=== PATIENT | female | born 1955 | race Caucasian/White ===

== ENCOUNTER → 2021-10-20 08:03 | Outpatient (CLI) | payer MEDICARE, OTHER, SELFPAY ==
[2021-10-20 19:01] LABS: Alanine Aminotransferase 19 IU/L (<35); Albumin 4.7 g/dL (3.5-5.0); Albumin Globulin Ratio 1.7 (1.0-2.8); Alkaline Phosphatase 64 U/L (38-126); Aspartate Aminotransferase 22 IU/L (14-36); BUN Creatinine Ratio 17.4 (6-22); Bilirubin Total 0.4 mg/dL (0.2-1.3); Blood Urea Nitrogen 12 mg/dL (7-17); Calcium 10.2 mg/dL (8.4-10.2); Carbon Dioxide 27 mmol/L (22-32); Chloride 104 mmol/L (98-107); Estimated Glomerular Filt Rate > 60.0 mL/min (>60); Globulin 2.8 g/dL (1.7-4.1); Glucose 96 mg/dL (80-110); HEMOLYSIS < 15 (0-50); Sodium 137 mmol/L (137-145); Total Protein 7.5 g/dL (6.3-8.2)
[2021-10-20 19:02] LABS: Potassium 4.4 mmol/L (3.4-5.1)
[2021-10-20 19:04] LABS: Add Manual Diff / Slide Review NO; Basophils Absolute Auto 100 /uL (0-100); Basophils Percent Auto 0.6 % (0-2); Eosinophils Absolute Auto 100 /uL (0-450); Eosinophils Percent Auto 0.7 % (2-4); Hematocrit 41.2 % (36-46); Hemoglobin 13.7 g/dL (12.0-16.0); Lymphocytes Absolute Auto 2300 /uL (1100-4500); Lymphocytes Percent Auto 24.2 % (25-40); Mean Corpuscular HGB Conc 33.4 % (30-36); Mean Corpuscular Hemoglobin 29.5 PG (26-34); Mean Corpuscular Volume 88.5 fL (80-100); Monocytes Absolute Auto 600 /uL (0-900); Monocytes Percent Auto 6.2 % (3-14); Neutrophils Absolute Auto 6600 /uL (1500-7000); Neutrophils Percent Auto 68.3 % (50-75); Platelet Count 464 X10^3/uL (150-400); Red Blood Cell Count 4.65 X10^6/uL (4.0-5.2); Red Cell Distribution Width 15.3 % (11.6-14.8); White Blood Cell Count 9.6 X10^3/uL (4.5-11.0)
[2021-10-20 19:20] LABS: Free T4, Direct Thyroxine 1.41 ng/dL (0.78-2.19)
[2021-10-20 19:34] LABS: Thyroid Stimulating Hormone 0.307 uIU/mL (0.47-4.68)
== END ==
PROVIDERS: PCP Family Medicine; Visit Provider Family Medicine
DX: M54.9 Dorsalgia, unspecified (principal); F32.A Depression, unspecified; E03.9 Hypothyroidism, unspecified; G89.29 Other chronic pain; R53.82 Chronic fatigue, unspecified
CPT/HCPCS: 80053; 84439; 84443; 85025

== ENCOUNTER 2022-01-20 09:24 | Emergency (ER) | payer OTHER, MEDICARE, SELFPAY ==
[2022-01-20 09:29] VITALS: BP 126/65; PULSE 98; RESP 14; TEMP 36; O2SAT 97; BMI 20.5
--- NOTE | 2022-01-20 09:33 | DI.RAD.S_ITS ---
PROCEDURE: XR KNEE RT 1TO2V INDICATIONS: knee injury TECHNIQUE: 2 views of the knee were acquired. COMPARISON: None. FINDINGS: Bones: Mildly comminuted fracture of the patella with distraction of the fracture fragments. Overlying soft tissue edema. No suspicious bony lesions. Soft tissues: No substantial joint effusion. No suspicious soft tissue calcifications. IMPRESSION: Mildly comminuted right patellar fracture with distraction of the proximal and distal fracture fragments. Dictated by: Lex Isaacs M.D. on 01/20/2022 at 10:40 Approved by: Lex Isaacs M.D. on 01/20/2022 at 10:41
[2022-01-20] MEDS: HYDROCODONE/ACET 5/325 TABLET 1 TAB PO ×2 (10:25→11:14)
[2022-01-20 10:30] VITALS: BP 133/84; PULSE 89; RESP 18; O2SAT 98
--- NOTE | 2022-01-20 10:42 | ED.LOWEXIN ---
HPI - Extremity Injury (Lower) General Chief Complaint: Extremity Injury, Lower Stated Complaint: Right knee injury Time Seen by Provider: 01/20/22 10:14 Source: patient Mode of arrival: Wheelchair History of Present Illness HPI Narrative: Patient is a 66-year-old female with noncontributory past medical history who presents with right knee pain. She was at work during sausage when she fell directly onto her knee. She is unable to bend it. She has severe pain is currently splinted [place] No numbness tingling or weakness. Related Data Home Medications Medication Instructions Recorded Confirmed alprazolam 0.25 mg tablet 0.25 mg PO BEDTIME 01/13/21 09/17/21 Previous Rx's Medication Instructions Recorded sertraline 100 mg tablet 100 mg PO DAILY #200 tabs 11/09/21 trazodone 50 mg tablet 50 mg PO BEDTIME #200 tabs 11/09/21 levothyroxine 50 mcg tablet 50 mcg PO DAILY #90 tabs 11/15/21 levothyroxine 25 mcg capsule 12.5 mcg PO DAILY #100 caps 11/16/21 hydrocodone 5 mg-acetaminophen 325 1 tab PO Q6H PRN pain #14 tabs 01/20/22 mg tablet Allergies Allergy/AdvReac Type Severity Reaction Status Date / Time cephalexin [From Keflex] Allergy Unknown Verified 01/20/22 09:29 seasonal Allergy Unknown Uncoded 01/13/21 20:24 yellow jackets Allergy Unknown Uncoded 01/13/21 20:24 Review of Systems Review of Systems Narrative: GENERAL: Denies chills,fever HEENT: Denies throat pain RESPIRATORY: Denies dyspnea, cough, wheezing CARDIOVASCULAR: Denies chest pain, palpitations GASTROINTESTINAL: Denies nausea, vomiting MUSCULOSKELETAL: See HPI SKIN: No rash, no laceration, no pruritus NEUROLOGIC: Denies weakness, dizziness, headache, numbness 8 point review of systems is negative except for those stated above and HPI Patient History Medical History Benign paroxysmal vertigo, bilateral Cataracts, bilateral (~2020) Chicken pox Chronic back pain (~1973) Chronic cough Chronic fatigue Chronic fatigue, unspecified Contusion of left front wall of thorax, initial encounter Depression Dizziness and giddiness Fibroids Fibromyalgia Headache Hemorrhoid Hypothyroidism, unspecified Insomnia Irregular menstrual cycle Mumps PTSD (post-traumatic stress disorder) Repeated falls Scoliosis Shoulder pain (~1973) Unspecified injury of face, initial encounter Unspecified injury of head, initial encounter Surgical History Anesthesia History of appendectomy History of hernia repair History of hysterectomy Family History Father Stroke Mother Ovarian cancer Hyperlipidemia Hypertension Brother Mental health problem Family estrangement Brother Stroke Sister Hyperlipidemia Hypertension Grandmother Cancer Grandfather History of heart disease Social History Smoking Status: Never smoker Smoking Status: Never smoker alcohol intake frequency: holidays/special occasions only Substance Use Type: does not use Exam Initial Vital Signs Initial Vital Signs: Vital Signs Temperature 96.8 F L 01/20/22 09:29 Pulse Rate 98 H 01/20/22 09:29 Respiratory Rate 14 01/20/22 09:29 Blood Pressure 126/65 01/20/22 09:29 Pulse Oximetry 97 01/20/22 09:29 Oxygen Delivery Method 01/20/22 09:29 GENERAL: Well-appearing, well-nourished and in no acute distress. CARDIOVASCULAR: peripheral pulses in tact, cap refill <2 sec RESPIRATORY: No respiratory distress, speaks in full sentences without difficulty EXTREMITIES: Normal range of motion, no clubbing or edema. Neurovascularly intact Right lower extremity swelling over patella, distal pedal pulse intact unable to flex or extend NEUROLOGICAL: Cranial nerves II through XII grossly intact. Normal gait and speech. SKIN: Warm, dry, no petechiae, no rashes or lesions. Course Orders Ordered: Discontinued Medications Hydrocodone Bitart/Acetaminophen (Hydrocodone/Acet 5/325 Tablet) 1 tab PO NOW ONE Stop: 01/20/22 10:20 Last Admin: 01/20/22 10:25 Dose: 1 tab Documented By: ANNALISE Hydrocodone Bitart/Acetaminophen (Hydrocodone/Acet 5/325 Tablet) 1 tab PO NOW ONE Stop: 01/20/22 11:10 Last Admin: 01/20/22 11:14 Dose: 1 tab Documented By: ANNALISE(2) Vital Signs Vital signs: Vital Signs - 8 hr 01/20/22 09:29 01/20/22 10:30 Temperature 96.8 F L Pulse Rate 98 H 89 Respiratory Rate 14 18 Blood Pressure 126/65 133/84 Pulse Oximetry 97 98 Oxygen Delivery Method Room Air MDM - Extremity Injury (Lower) Imaging Data Extremity x-ray #1: Radiologist's Impression: Signed Patient: Saida Euceda MR#: [id number] : 1955 Acct:[id number] Age/Sex: 66 / F Date of Service: 01/20/22 Loc: ED Accession Number: [id number] ?? Procedure: XR knee RT 1to2V Ordering Provider: Sarah Kulkarni D.O. PROCEDURE:? XR KNEE RT 1TO2V ? INDICATIONS:? knee injury ? TECHNIQUE:? 2 views of the knee were acquired.? ? COMPARISON:? None. ? FINDINGS:? ? Bones:? Mildly comminuted fracture of the patella with distraction of the fracture fragments.? Overlying soft tissue edema.? No suspicious bony lesions.? ? Soft tissues:? No substantial joint effusion.? No suspicious soft tissue calcifications.? IMPRESSION:? Mildly comminuted right patellar fracture with distraction of the proximal and distal fracture fragments. ? ? Dictated by: Lex Isaacs M.D. on 01/20/2022 at 10:40 ? ? Approved by: Lex Isaacs M.D. on 01/20/2022 at 10:41 ? [facility] Narrative Medical decision making narrative: Dr. Gillespie consulted. Request patient call office today so surgery can be scheduled. Patient is given pain medications in the ED. Overall doing much better. Discharge Plan Departure Patient Disposition: Home Clinical Impression: Patellar fracture Instructions: Patella Fracture Activity Restrictions/Additional Instructions: *You have been diagnosed with right patellar fracture *What to do: Keep knee immobilizer on elevate and ice *Continue to take medications as directed 1 tablet every 4 hours or 2 tablets every 6 hours if needed for pain *Follow up with your primary care provider in 2-3 days or call [phone] Please stop off at orthopedic office today to provide insurance information so surgery can be expedited and scheduled *Return to ER if you should have increasing pain swelling fever or any new, worsening or concerning symptoms CONTROLLED SUBSTANCE DISCHARGE (Narcotoic/benzodiazepine/Flexeril/Phenergan) 1. You have been prescribed narcotic medications, it does have acetaminophen/Tylenol/paracetamol in it, DO NOT TAKE MORE THAN 4,00mg in 24 hours of Tylenol. TRAMADOL DOES NOT CONTAIN TYLENOL 2. Please understand that we cannot provide further refills of narcotics, benzodiazepines or controlled substances through the ED and her pain management will need to be through your provider. 3. While on these medications you cannot drive or operate heavy machinery. 4. You cannot sign legal documents or perform any duties such as this. 5. As long as you're taking opiate pain medications he should also be taking a stool softener such as Colace, Dulcolax, MiraLAX or prune juice, to help avoid constipation. Prescriptions: New hydrocodone-acetaminophen 5-325 mg tablet 1 tab PO Q6H PRN (Reason: pain) Qty: 14 0RF No Action levothyroxine 50 mcg tablet 50 mcg PO DAILY Qty: 90 1RF levothyroxine 25 mcg capsule 12.5 mcg PO DAILY Qty: 100 1RF alprazolam 0.25 mg tablet 0.25 mg PO BEDTIME sertraline 100 mg tablet 100 mg PO DAILY Qty: 200 1RF trazodone 50 mg tablet 50 mg PO BEDTIME Qty: 200 1RF Referrals: [facility] [Provider Group] Agustin Rizo MD [Physician] - Benjamin Rinaldi DO [Primary Care Provider] - Visit Report Forms: Patient Portal/API
== END 2022-01-20 11:53 | disposition home or self-care (01) ==
PROVIDERS: Emergency Provider Emergency Medicine; PCP Family Medicine
DX: S82.041A Displaced comminuted fracture of right patella, initial encounter for closed fracture (principal); W19.XXXA Unspecified fall, initial encounter; Y99.0 Civilian activity done for income or pay
CPT/HCPCS: 73560; 99283

== ENCOUNTER → 2022-05-26 13:25 | Outpatient (CLI) | payer MEDICARE, OTHER, SELFPAY ==
[2022-05-26 19:28] LABS: Alanine Aminotransferase 32 IU/L (<35); Albumin 4.6 g/dL (3.5-5.0); Albumin Globulin Ratio 1.7 (1.0-2.8); Alkaline Phosphatase 82 U/L (38-126); Aspartate Aminotransferase 30 IU/L (14-36); Bilirubin Total 0.2 mg/dL (0.2-1.3); Blood Urea Nitrogen 12 mg/dL (7-17); Calcium 8.4 mg/dL (8.4-10.2); Carbon Dioxide 25 mmol/L (22-32); Chloride 96 mmol/L (98-107); Estimated Glomerular Filt Rate > 60 mL/min (>60); Globulin 2.7 g/dL (1.7-4.1); Glucose 76 mg/dL (80-110); HEMOLYSIS < 15 (0-50); Potassium 3.9 mmol/L (3.4-5.1); Sodium 132 mmol/L (137-145); Total Protein 7.3 g/dL (6.3-8.2)
[2022-05-26 19:41] LABS: Free T3, Triiodothyronine Free 3.48 pg/mL (2.77-5.27); Free T4, Direct Thyroxine 1.22 ng/dL (0.78-2.19)
== END ==
PROVIDERS: PCP Family Medicine; Visit Provider Family Medicine
DX: R53.82 Chronic fatigue, unspecified (principal); E03.9 Hypothyroidism, unspecified; F32.A Depression, unspecified; G47.00 Insomnia, unspecified
CPT/HCPCS: 80053; 84439; 84481

== ENCOUNTER → 2022-08-22 13:59 | Outpatient (CLI) | payer MEDICARE, OTHER, SELFPAY ==
[2022-08-22 19:20] LABS: Add Manual Diff / Slide Review NO; Basophils Absolute Auto 100 /uL (0-100); Eosinophils Absolute Auto 100 /uL (0-450); Eosinophils Percent Auto 1.1 % (2-4); Hematocrit 38.5 % (36-46); Hemoglobin 12.7 g/dL (12.0-16.0); Lymphocytes Absolute Auto 2400 /uL (1100-4500); Lymphocytes Percent Auto 31.7 % (25-40); Mean Corpuscular Hemoglobin 28.1 PG (26-34); Monocytes Absolute Auto 400 /uL (0-900); Monocytes Percent Auto 5.9 % (3-14); Neutrophils Absolute Auto 4500 /uL (1500-7000); Neutrophils Percent Auto 60.3 % (50-75); Platelet Count 305 X10^3/uL (150-400); Red Blood Cell Count 4.53 X10^6/uL (4.0-5.2); Red Cell Distribution Width 15.1 % (11.6-14.8); White Blood Cell Count 7.5 X10^3/uL (4.5-11.0)
[2022-08-22 19:38] LABS: BUN Creatinine Ratio 25.3 (6-22); Blood Urea Nitrogen 24 mg/dL (7-17); Calcium 9.1 mg/dL (8.4-10.2); Carbon Dioxide 26 mmol/L (22-32); Chloride 100 mmol/L (98-107); Estimated Glomerular Filt Rate > 60 mL/min (>60); Glucose 94 mg/dL (80-110); HEMOLYSIS < 15 (0-50); Potassium 4.3 mmol/L (3.4-5.1); Sodium 134 mmol/L (137-145)
[2022-08-22 20:00] LABS: TSH w/ Reflex to FT4 0.92 uIU/mL (0.47-4.68)
== END ==
PROVIDERS: PCP Family Medicine; Visit Provider Family Medicine
DX: E03.9 Hypothyroidism, unspecified (principal); F51.01 Primary insomnia; D75.839 Thrombocytosis, unspecified; E87.1 Hypo-osmolality and hyponatremia
CPT/HCPCS: 80048; 84443; 85025

== ENCOUNTER → 2023-09-13 09:52 | Outpatient (CLI) | payer MEDICARE, OTHER, SELFPAY ==
[2023-09-13 19:26] LABS: Blood Urea Nitrogen 14 mg/dL (7-17); Calcium 9.4 mg/dL (8.4-10.2); Carbon Dioxide 24 mmol/L (22-32); Chloride 106 mmol/L (98-107); Estimated Glomerular Filt Rate > 60 mL/min (>60); Glucose 91 mg/dL (80-110); HEMOLYSIS < 15 (0-50); Potassium 3.9 mmol/L (3.4-5.1); Sodium 138 mmol/L (137-145)
[2023-09-13 19:38] LABS: Add Manual Diff / Slide Review NO; Basophils Absolute Auto 100 /uL (0-100); Eosinophils Absolute Auto 100 /uL (0-450); Eosinophils Percent Auto 1.7 % (2-4); Hematocrit 37.3 % (36-46); Hemoglobin 12.5 g/dL (12.0-16.0); Lymphocytes Absolute Auto 2300 /uL (1100-4500); Lymphocytes Percent Auto 39.5 % (25-40); Mean Corpuscular HGB Conc 33.5 % (30-36); Mean Corpuscular Hemoglobin 28.4 PG (26-34); Mean Corpuscular Volume 84.9 fL (80-100); Monocytes Absolute Auto 400 /uL (0-900); Neutrophils Absolute Auto 2900 /uL (1500-7000); Neutrophils Percent Auto 50.8 % (50-75); Platelet Count 276 X10^3/uL (150-400); Red Cell Distribution Width 14.6 % (11.6-14.8); White Blood Cell Count 5.7 X10^3/uL (4.5-11.0)
[2023-09-13 19:57] LABS: TSH w/ Reflex to FT4 0.56 uIU/mL (0.47-4.68)
== END ==
PROVIDERS: PCP Family Medicine; Visit Provider Family Medicine
DX: F33.0 Major depressive disorder, recurrent, mild (principal); E03.9 Hypothyroidism, unspecified; D75.839 Thrombocytosis, unspecified
CPT/HCPCS: 80048; 84443; 85025

== ENCOUNTER → 2024-10-18 08:43 | Outpatient (CLI) | payer MEDICARE, OTHER, SELFPAY ==
[2024-10-18 19:41] LABS: Add Manual Diff / Slide Review NO; Basophils Absolute Auto 0 /uL (0-100); Basophils Percent Auto 0.6 % (0-2); Eosinophils Absolute Auto 0 /uL (0-450); Eosinophils Percent Auto 0.8 % (2-4); Hemoglobin 13.6 g/dL (12.0-16.0); Lymphocytes Absolute Auto 1700 /uL (1100-4500); Lymphocytes Percent Auto 29.3 % (25-40); Mean Corpuscular HGB Conc 33.2 % (30-36); Mean Corpuscular Volume 90.4 fL (80-100); Monocytes Absolute Auto 500 /uL (0-900); Monocytes Percent Auto 8.5 % (3-14); Neutrophils Absolute Auto 3500 /uL (1500-7000); Neutrophils Percent Auto 60.8 % (50-75); Platelet Count 324 X10^3/uL (150-400); Red Blood Cell Count 4.53 X10^6/uL (4.0-5.2); Red Cell Distribution Width 15.4 % (11.6-14.8); White Blood Cell Count 5.8 X10^3/uL (4.5-11.0)
[2024-10-18 19:47] LABS: BUN Creatinine Ratio 17.7 (6-22); Blood Urea Nitrogen 11 mg/dL (7-17); Calcium 9.9 mg/dL (8.4-10.2); Carbon Dioxide 23 mmol/L (22-32); Chloride 102 mmol/L (98-107); Estimated Glomerular Filt Rate > 60 mL/min (>60); Glucose 100 mg/dL (80-110); HEMOLYSIS 16 (0-50); Potassium 4.1 mmol/L (3.4-5.1); Sodium 137 mmol/L (137-145); Triglycerides 106 mg/dL (35-150)
[2024-10-18 19:55] LABS: Cholesterol 372 mg/dL (140-199)
[2024-10-18 19:56] LABS: HDL Cholesterol 136 mg/dL (40-60); LDL Cholesterol Calculated 215 mg/dL (<100)
[2024-10-18 20:20] LABS: TSH w/ Reflex to FT4 0.49 uIU/mL (0.47-4.68)
== END ==
PROVIDERS: PCP Family Medicine; Visit Provider Family Medicine
DX: E03.9 Hypothyroidism, unspecified (principal); F33.0 Major depressive disorder, recurrent, mild; F41.1 Generalized anxiety disorder; D75.839 Thrombocytosis, unspecified; E87.1 Hypo-osmolality and hyponatremia
CPT/HCPCS: 80048; 80061; 84443; 85025